=== PATIENT | male | born 1955 | race Caucasian/White ===

== ENCOUNTER 2016-03-25 20:10 | Observation (INO) | payer OTHER ==
[~2016-03-25] VITALS: Ht 175.3 cm; Wt 45.7 kg
[2016-03-25 21:54] LABS: HEMATOCRIT 40.7 % (38.0-50.0); MCH 24.9 PG (29.0-34.0); MCV 80.3 FL (86-99); MEAN PLAT.VOLUME 8.8 uM^3 (9.0-12.4); PLATELET COUNT 508 K/uL (156-360); RBC DIS.WIDTH-CV 18.6 % (11.8-14.6); RBC DIS.WIDTH-SD 53.2 % (39-53); RED BLOOD COUNT 5.07 M/uL (4.00-5.50); WHITE BLOOD COUNT 16.8 K/uL (4.1-10.2)
[2016-03-25 22:09] LABS: CHLORIDE 91 mEq/L (99-109); POTASSIUM 3.9 mEq/L (3.7-5.4); SODIUM 133 mEq/L (136-147)
[2016-03-25 22:10] LABS: GLUCOSE 90 mg/dL (70-99)
[2016-03-25 22:12] LABS: ANION GAP 15 MEQ/L (2-14)
[2016-03-25 22:14] LABS: GFR ESTIMATE (CALCULATED) > 59 mL/min/
[2016-03-25 22:15] LABS: UREA NITROGEN (BUN) 21 mg/dL (9-23)
[2016-03-26 10:12] LABS: HEMATOCRIT 30.3 % (38.0-50.0); MCH 25.4 PG (29.0-34.0); MCV 81.9 FL (86-99); MEAN PLAT.VOLUME 8.3 uM^3 (9.0-12.4); PLATELET COUNT 358 K/uL (156-360); RBC DIS.WIDTH-CV 18.5 % (11.8-14.6); RBC DIS.WIDTH-SD 53.6 % (39-53); WHITE BLOOD COUNT 12.8 K/uL (4.1-10.2)
[2016-03-26 10:17] LABS: INTER. NORMALIZED RATIO 1.1; POTASSIUM 3.6 mEq/L (3.7-5.4); PROTHROMBIN TIME 10.7 (9.2-11.2)
[2016-03-26 10:19] LABS: CHLORIDE 102 mEq/L (99-109); GLUCOSE 89 mg/dL (70-99); SODIUM 140 mEq/L (136-147)
[2016-03-26 10:20] LABS: ANION GAP 6 MEQ/L (2-14)
[2016-03-26 10:21] LABS: TOTAL BILIRUBIN 0.3 mg/dL (0.0-1.0)
[2016-03-26 10:23] LABS: ALKALINE PHOSPHATASE 52 IU/L (3-129); GFR ESTIMATE (CALCULATED) > 59 mL/min/
[2016-03-26 10:24] LABS: UREA NITROGEN (BUN) 15 mg/dL (9-23)
[2016-03-26 10:29] LABS: TROP-I INTERPRETATION NEGATIVE; TROPONIN-I 0.01 ng/mL (0.0-0.30)
[2016-03-26] MEDS ORDERED: CLEOCIN300 MG PO (12:15)
[2016-03-26] MEDS ORDERED: MORPHINE CON20 MG/M1 PO (12:28)
[2016-03-26 13:50] LABS: BILIRUBIN NEGATIVE; BLOOD NEGATIVE; GLUCOSE (STRIP) NEGATIVE; KETONES NEGATIVE; LEUKOCYTES NEGATIVE; NITRITE NEGATIVE; PH, URINE 6.5 (5-8); PROTEIN (STRIP) NEGATIVE; SPECIFIC GRAVITY 1.019 (1.000-1.030); UROBILINOGEN 0.2 MG/DL (0.2-1.0)
[2016-03-26 13:52] LABS: ADD MIUA? NO; COLOR LT YELLOW ((YELLOW)); UCUL ADDED? NO
[2016-03-26 16:18] VITALS: BP 94/52
[2016-03-26 20:00] VITALS: BP 102/53
[2016-03-27 00:45] VITALS: BP 104/59
[2016-03-27 04:37] VITALS: BP 110/57
[2016-03-27 06:54] LABS: ANION GAP 11 MEQ/L (2-14); CHLORIDE 101 MEQ/L (99-109); GFR ESTIMATE (CALCULATED) > 59 mL/min/; POTASSIUM 2.9 MEQ/L (3.7-5.4); SAMPLE HEMOLYSIS CHECK 0; SAMPLE ICTERIC CHECK 0; SAMPLE LIPEMIA CHECK 0; SODIUM 140 MEQ/L (136-147); UREA NITROGEN (BUN) 9 mg/dL (9-23)
[2016-03-27 06:57] LABS: GLUCOSE 58 mg/dL (70-99)
[2016-03-27 08:17] VITALS: BP 115/58
[2016-03-27 12:44] VITALS: BP 103/52
[2016-03-27 15:16] LABS: C DIFF TOXIN NEGATIVE (NEGATIVE)
[2016-03-27 15:17] LABS: PROBE CHECK PASS; SPECIMEN PROCESSING CONTROL PASS
[2016-03-27 16:07] VITALS: BP 103/58
[2016-04-06] MEDS ORDERED: MULTIVITAM9 MG/15 M1 PO (10:59)
[2016-04-06] MEDS ORDERED: DAILY VALUE1 EACH PO (10:59)
== END 2016-03-27 17:39 | disposition home or self-care (01) ==
LOC: EME 20:10 → 5WEST 03-26 13:14 → EDOF 03-26 13:14 → 5WEST 03-26 15:27
PROVIDERS: Emergency Medicine; Internal Medicine
DX: E83.52 Hypercalcemia (principal); C13.1 Malignant neoplasm of aryepiglottic fold, hypopharyngeal aspect; J44.9 Chronic obstructive pulmonary disease, unspecified; Z87.891 Personal history of nicotine dependence; Z93.0 Tracheostomy status; Z79.891 Long term (current) use of opiate analgesic; Z93.4 Other artificial openings of gastrointestinal tract status
CPT/HCPCS: 71010; 74177; 77300; 77301; 77338; 80048; 80053; 81003; 83605; 84484; 85027; 85610; 87493; 93005; 94799; 99202; 99281; 99285; G0378; J1650; J1940; J2270; J2405; J3480; J7030

== ENCOUNTER 2016-04-28 15:06 | Emergency (ER) | payer OTHER ==
[~2016-04-28] VITALS: Ht 175.3 cm; Wt 43.2 kg
[~2016-04-28 15:06] MED LIST: CLEOCIN300 MG PO; DAILY VALUE1 EACH PO; MORPHINE CON20 MG/M1 PO; MULTIVITAM9 MG/15 M1 PO
[2016-04-28 17:03] LABS: MCH 26.4 PG (29.0-34.0); MCHC 32.4 G/DL (30.0-36.0); MCV 81.3 FL (86-99); MEAN PLAT.VOLUME 8.3 uM^3 (9.0-12.4); RBC DIS.WIDTH-CV 16.9 % (11.8-14.6); RBC DIS.WIDTH-SD 48.3 % (39-53)
[2016-04-28 17:10] LABS: PLATELET COUNT 332 K/uL (156-360); RED BLOOD COUNT 4.55 M/uL (4.00-5.50); WHITE BLOOD COUNT 6.5 K/uL (4.1-10.2)
[2016-04-28 17:14] LABS: CHLORIDE 99 mEq/L (99-109); POTASSIUM 4.4 mEq/L (3.7-5.4); SODIUM 140 mEq/L (136-147)
[2016-04-28 17:16] LABS: GLUCOSE 105 mg/dL (70-99)
[2016-04-28 17:17] LABS: ANION GAP 11 MEQ/L (2-14)
[2016-04-28 17:20] LABS: GFR ESTIMATE (CALCULATED) > 59 mL/min/
[2016-04-28 17:26] LABS: TROP-I INTERPRETATION NEGATIVE; TROPONIN-I < 0.01 ng/mL (0.0-0.30)
[2016-04-28 17:28] LABS: UREA NITROGEN (BUN) 21 mg/dL (9-23)
[2016-04-28] MEDS ORDERED: ZITHROMAX200 MG/5 M PO (18:41)
[2016-04-28] MEDS ORDERED: PREDNISONE5 MG/1 ML PO (18:42)
[2016-04-28 20:07] VITALS: BP 117/68
== END 2016-04-28 20:08 | disposition home or self-care (01) ==
LOC: EME 15:06
DX: J44.0 Chronic obstructive pulmonary disease with (acute) lower respiratory infection (principal); J20.9 Acute bronchitis, unspecified; C10.9 Malignant neoplasm of oropharynx, unspecified; Z79.899 Other long term (current) drug therapy; I10 Essential (primary) hypertension; I25.2 Old myocardial infarction; Z87.891 Personal history of nicotine dependence; Z93.0 Tracheostomy status
CPT/HCPCS: 71020; 80048; 84484; 85027; 93005; 94640; 99281; 99284; J2270; J7512

== ENCOUNTER 2016-05-01 15:08 | Emergency (ER) | payer OTHER ==
[~2016-05-01] VITALS: Ht 175.3 cm; Wt 91.0 kg
[~2016-05-01 15:08] MED LIST changes: +PREDNISONE5 MG/1 ML PO; +ZITHROMAX200 MG/5 M PO
[2016-05-01 15:54] LABS: HEMATOCRIT 38.4 % (38.0-50.0); MCHC 31.5 G/DL (30.0-36.0); MCV 82.6 FL (86-99); MEAN PLAT.VOLUME 7.6 uM^3 (9.0-12.4); PLATELET COUNT 286 K/uL (156-360); RBC DIS.WIDTH-CV 16.1 % (11.8-14.6); RBC DIS.WIDTH-SD 47.4 % (39-53); RED BLOOD COUNT 4.65 M/uL (4.00-5.50)
[2016-05-01 16:14] LABS: CHLORIDE 94 mEq/L (99-109); POTASSIUM 3.8 mEq/L (3.7-5.4); SODIUM 135 mEq/L (136-147)
[2016-05-01 16:15] LABS: GLUCOSE 80 mg/dL (70-99)
[2016-05-01 16:17] LABS: ANION GAP 8 MEQ/L (2-14)
[2016-05-01 16:19] LABS: GFR ESTIMATE (CALCULATED) > 59 mL/min/
[2016-05-01 16:20] LABS: UREA NITROGEN (BUN) 19 mg/dL (9-23)
[2016-05-01 16:22] LABS: TROP-I INTERPRETATION NEGATIVE; TROPONIN-I < 0.01 ng/mL (0.0-0.30)
[2016-05-01 18:08] VITALS: BP 100/67
== END 2016-05-01 18:20 | disposition home or self-care (01) ==
LOC: EME 15:08
DX: R94.31 Abnormal electrocardiogram [ECG] [EKG] (principal); C76.0 Malignant neoplasm of head, face and neck; Z87.891 Personal history of nicotine dependence
CPT/HCPCS: 71020; 80048; 84484; 85027; 93005; 99281; 99285